=== PATIENT | female | born 1940 | race Caucasian/White ===

== ENCOUNTER 2018-01-04 06:00 | Day surgery (SDC) | payer MEDICARE, OTHER ==
[~2018-01-04 06:00] MED LIST: LACTATED RINGER'S 1,000 ML IV
[2018-01-04] MEDS ORDERED: CEFAZOLIN 1 GM INJ (07:00)
[2018-01-04] MEDS ORDERED: ALBUTEROL 0.083% (NEB) 2.5 MG/3 ML AMP HHN ×2 (07:42→10:30)
[2018-01-04] MEDS: TETRACAINE 0.5% 4 ML OPH OPER (08:05)
[2018-01-04] MEDS: MOXIFLOXACIN 0.5% 3 ML OPH OPER (08:05)
[2018-01-04] MEDS: TROPICAMIDE 1% 3 ML OPH OPER (08:05)
[2018-01-04] MEDS: PHENYLephrine 10% 5 ML OPH OPER (08:06)
[2018-01-04] MEDS: BROMFENAC SODIUM 1.7 ML OPH DROP OPER (08:06)
[2018-01-04] MEDS: CYCLOPENTOLATE 2% 2 ML OPH OPER (08:06)
[2018-01-04] MEDS: LIDOCAINE 3.5% GEL TUBE OPER (08:06)
[2018-01-04] MEDS: LIDOCAINE 1%/EPI 30 ML INJ INJ (08:40)
[2018-01-04] MEDS ORDERED: MIDAZOLAM 1 MG/ML 2 ML INJ ×2 (08:57→09:33)
[2018-01-04] MEDS ORDERED: TOBRAMYCIN 0.3% 3.5 GM OPH OINT (09:02)
[2018-01-04] MEDS ORDERED: EPINEPHrine 1 MG INJ (09:02)
[2018-01-04] MEDS ORDERED: TRYPAN BLUE 0.5 ML SYG IO (09:19)
[2018-01-04] MEDS ORDERED: CARBACHOL 0.01% 1.5 ML OPH INJ (09:37)
[2018-01-04] MEDS: CARBACHOL 0.01% 1.5 ML OPH INJ IO (09:47)
[2018-01-04] MEDS: TOBRAMYCIN 0.3% 3.5 GM OPH OINT RIGHT EYE (09:48)
[2018-01-04] MEDS: ONDANSETRON 4 MG INJ IV (10:13)
[2018-01-04] MEDS: FENTAnyl 50 MCG/ML VIAL IV (10:14)
[2018-01-04] MEDS ORDERED: EPHEDrine SULFATE 50 MG/5 ML SYG IV (10:30)
[2018-01-04] MEDS ORDERED: LABETALOL HCL 20MG INJ IV (10:30)
[2018-01-04] MEDS ORDERED: hydrALAzine 20 MG INJ IV (10:30)
[2018-01-04] MEDS ORDERED: METOCLOPRAMIDE 10 MG INJ IV (10:30)
[2018-01-04] MEDS ORDERED: DIPHENHYDRAMINE 50 MG INJ IV (10:30)
[2018-01-04] MEDS ORDERED: MEPERIDINE 25 MG INJ IV (10:30)
[2018-01-04] MEDS ORDERED: OXYCODONE/ACETAMINOPHEN (5/325) TAB PO ×2 (10:30)
[2018-01-04] MEDS ORDERED: FENTAnyl 50 MCG/ML VIAL IV ×2 (10:30)
[2018-01-04] MEDS: KETOROLAC 30 MG INJ IV (11:19)
== END 2018-01-04 12:35 | disposition home or self-care (01) ==
LOC: SDS 06:00
DX: H25.21 Age-related cataract, morgagnian type, right eye (principal); I10 Essential (primary) hypertension; I25.10 Atherosclerotic heart disease of native coronary artery without angina pectoris
CPT/HCPCS: 66984

== ENCOUNTER 2018-01-11 12:01 | Day surgery (SDC) | payer MEDICARE, OTHER ==
[2018-01-11] MEDS ORDERED: LACTATED RINGER'S 1,000 ML IV (13:00)
[2018-01-11] MEDS: LIDOCAINE 1%/EPI 30 ML INJ INJ (13:29)
[2018-01-11] MEDS ORDERED: TOBRAMYCIN 0.3% 3.5 GM OPH OINT (13:33)
[2018-01-11] MEDS ORDERED: EPINEPHrine 1 MG INJ (13:33)
[2018-01-11] MEDS ORDERED: MIDAZOLAM 1 MG/ML 2 ML INJ (13:44)
[2018-01-11] MEDS ORDERED: FENTAnyl 50 MCG/ML VIAL ×2 (13:44→14:10)
[2018-01-11 13:47] LABS: INR 1.84; PROTIME 21.7 Sec (11.9-14.9); PT RATIO 1.7
[2018-01-11] MEDS ORDERED: CEFAZOLIN 1 GM INJ (14:11)
[2018-01-11] MEDS ORDERED: DEXAMETHASONE 4 MG/ML 1 ML INJ (14:12)
[2018-01-11] MEDS ORDERED: ONDANSETRON 4 MG INJ ×2 (14:12→14:46)
[2018-01-11] MEDS ORDERED: METOCLOPRAMIDE 10 MG INJ (14:12)
[2018-01-11] MEDS: NA HYALURONATE/CHONDROITIN 0.5 ML SYG RIGHT EYE (14:20)
[2018-01-11] MEDS: TOBRAMYCIN 0.3% 3.5 GM OPH OINT RIGHT EYE (14:20)
[2018-01-11 14:21] LABS: PARTIAL THROMBOPLASTIN TIME 40.1 Sec (25.0-35.0)
[2018-01-11] MEDS: ONDANSETRON 4 MG INJ IV (15:19)
== END 2018-01-11 16:42 | disposition home or self-care (01) ==
LOC: SUR 12:01 → SDS 12:01 → SUR 16:42
DX: H59.021 Cataract (lens) fragments in eye following cataract surgery, right eye (principal); Y84.8 Other medical procedures as the cause of abnormal reaction of the patient, or of later complication, without mention of misadventure at the time of the procedure; I10 Essential (primary) hypertension; E78.5 Hyperlipidemia, unspecified
CPT/HCPCS: 66920; 85610; 85730